=== PATIENT | female | born 1980 | race Asian ===

== ENCOUNTER 2018-01-21 09:39 | Inpatient (IN) | payer OTHER ==
[~2018-01-21] VITALS: Ht 177.8 cm; Wt 139.9 kg
[2018-01-21 09:50] VITALS: BP 129/71
--- NOTE | 2018-01-21 10:05 | NUR ---
C/O EPIGASTRIC PAIN RADIATING TO THE LOWER BACK X 4 DAYS WITH VOMITING ONLY ON FRIDAY. ALSO STATES SHE HAS HEMATURIA. DENIES N/V/D AT THIS TIME; SKIN IS PINK/WARM/DRY; AAOX4 WITH EVEN AND STEADY GAIT; LUNGS CLEAR BL; HR EVEN AND REGULAR; PT DENIES ANY FEVER, CP, SOB, OR COUGH AT THIS TIME; PATIENT STATES PAIN OF 8/10 AT THIS TIME; VSS; PATIENT POSITIONED FOR COMFORT; HOB ELEVATED; BEDRAILS UP X2; BED DOWN. ER MD MADE AWARE OF PT STATUS.
--- NOTE | 2018-01-21 10:09 | NUR ---
DR CHAND AT BEDSIDE.
[2018-01-21] MEDS ORDERED: KETOROLAC 30 MG/ML VIAL IVP ONE (10:15)
[2018-01-21] MEDS ORDERED: KETOROLAC 60 MG/2 ML VIAL IM ONE (10:35)
[2018-01-21 10:52] LABS: BASOPHILS % (AUTO) 0.2 % (0.0-2.0); EOSINOPHILS # (AUTO) 0.3 K/uL (0-0.4); HEMATOCRIT 42.7 % (36-48); HEMOGLOBIN 13.8 g/dL (12.0-16.0); LYMPHOCYTES # (AUTO) 1.8 K/uL (2.5-16.5); LYMPHOCYTES % (AUTO) 13.6 % (20.5-51.1); MEAN CORPUSCULAR HEMOGLOBIN 29 pg (27-31); MEAN CORPUSCULAR HGB CONC 32 g/dL (33-37); MEAN CORPUSCULAR VOLUME 88.8 fL (80-94); MONOCYTES % (AUTO) 7.4 % (1.7-9.3); NEUTROPHILS # (AUTO) 10.2 K/uL (1.8-7.7); NEUTROPHILS % (AUTO) 76.8 % (42.2-75.2); PLATELET COUNT (AUTO) 305 K/uL (140-450); WHITE BLOOD COUNT (AUTO) 13.3 K/uL (4.8-10.8)
[2018-01-21 10:55] LABS: APPEARANCE,URINE HAZY (CLEAR); BILIRUBIN,URINE MODERATE (NEGATIVE); BLOOD, URINE LARGE (NEGATIVE); LEUKOCYTE ESTERASE ,URINE TRACE (NEGATIVE); NITRITE, URINE POSITIVE (NEGATIVE); PH,URINE 6.5 (5.0-9.0); UGLUCOSE NEGATIVE (NEGATIVE)
[2018-01-21 10:56] LABS: COLOR,URINE ORANGE (YELLOW)
[2018-01-21 11:08] LABS: RBC,URINE 11-20 (MOD) /HPF (0-5); WBC,URINE 0-5 (RARE) /HPF (0-5)
[2018-01-21 11:09] LABS: YEAST,URINE Few /HPF (None Seen)
[2018-01-21 11:10] LABS: CARBON DIOXIDE 26.4 mmol/L (21-32); CREATININE 0.8 mg/dL (0.6-1.3); POTASSIUM 3.4 mmol/L (3.5-5.1)
--- NOTE | 2018-01-21 11:11 | NUR ---
PATIENT STATES PAIN IMPROVED TO 4/10 AFTER TORADOL SHOT.
[2018-01-21 11:14] LABS: ALBUMIN 3.1 g/dL (3.4-5.0); TOTAL BILIRUBIN 0.9 mg/dL (0.0-1.0)
[2018-01-21] MEDS ORDERED: PIPERACILLIN/TAZOBACTAM 3.375 GM in DEXTROSE 5% 50 ML IV ONE (12:45)
--- NOTE | 2018-01-21 13:00 | NUR ---
NO STATED NEEDS AT THIS TIME.
[2018-01-21] MEDS ORDERED: PIPERACILLIN/TAZOBACTAM 3.375 GM VIAL IV ONE (13:07)
[2018-01-21] MEDS ORDERED: NACL 0.9% 1,000 ML IV SCH (13:13)
[2018-01-21] MEDS ORDERED: ACETAMINOPHEN 325 MG TAB PO PRN (13:15)
[2018-01-21] MEDS ORDERED: MORPHINE SULFATE 2 MG/ML SYR IVP PRN (13:15)
[2018-01-21] MEDS ORDERED: MORPHINE SULFATE 4 MG/ML SYR IVP PRN (13:15)
[2018-01-21] MEDS ORDERED: ONDANSETRON 4 MG/2 ML VIAL IVP PRN (13:15)
[2018-01-21 13:24] LABS: PROTHROMBIN TIME 9.6 secs (10.8-13.4)
--- NOTE | 2018-01-21 14:09 | NUR ---
Patient will be admitted to care of DR. CONNELL. Admited to [facility]. ADMITTED to room 111-B. Belongings list completed. Report to BARTOLO COLBY.
--- NOTE | 2018-01-21 14:28 | NUR ---
REVEIVED RE[PORT FROM ER NURSE AT BEDSIDE. PT ADMITTED WITH DX OF ACUTE CHOLECYSTITIS, CC OF ABD PAIN.. PT SITTING ON HER BED AT THIS TIME, AOX4, SKIN IS INTACT. PT DENIES ANY PAIN AT THIS TIME. MRSA SWAB COLLECTED. PT ON NPO. EDUCATED HER ON NPO STATUS. ASKING WHEN SHE WILL KNOW ABOUT SX, INFORMED HER THAT PT WILL BE SEEN BY MD AND THEN WILL DECIDE FROM THE ASSESSMENT DONE. PLACE CALL LIGHT WITHIN PT REACH. INFORMED HER TO USE CALL LIGHT FOR ANY HELP. VERBALISED UNDERSTANDING. WILL CONTINUE TO MONITOR PT.
[2018-01-21 16:00] VITALS: BP 106/61
--- NOTE | 2018-01-21 16:51 | NUR ---
CHECKED ON PT. LYING ON HER BED AND TALKING WITH . VS WITHIN NORMAL RANGE. NO SIGN OF DISTRESS NOTED. PT DENIES ANY PAIN. INFORMED PT TO USE CALL LIGHT FOR ANY HELP. VERBALIZED UNDERSTANDING. WILL CONTINUE TO MONITOR PT.
--- NOTE | 2018-01-21 17:53 | NUR ---
DR BOSE CALLED REGARDING PT UPDATE. ASKING ABOUT WBC , INFORMED HIM THAT PT HAS 13.3 WBC AT THIS TIME. CHECKED ON PT. NO SIGN OF DISTRESS NOTED. WILL CONTINUE TO MONITOR PT.
--- NOTE | 2018-01-21 19:10 | NUR ---
ENDORSED PT TO PM NURSE AT BEDSIDE. PT LTING ON HER BED. NPO. AT BEDSIDE. SCD AT BEDSIDE. PT REFUSED TO PUT IT ON. PT STABLE.
--- NOTE | 2018-01-21 19:11 | NUR ---
RECEIVED REPORT FROM DAY SHIFT RN SITAL FOR CONTINUITY OF CARE. PT IS A/OX4, ON ROOM AIR. PT AMBULATES WITH STEADY GAIT, AND SKIN IS PINK/WARM/DRY AND INTACT. PT IS ABLE TO MAKE NEEDS KNOWN, AND ABLE TO FOLLOW COMMANDS. LUNGS SOUNDS CLEAR, HR EVEN AND REGULAR. PT HAS 22G IV TO LEFT HAND, ASYMPTOMATIC AND INTACT. PT DENIES ANY PAIN AT THIS TIME. VITAL SIGNS STABLE. NO SIGNS OF DISTRESS NOTED. PT POSITIONED FOR COMFORT. BED RAILS UP X2, BED IN LOWEST POSITION. CALL LIGHT WITHIN REACH. WILL CONTINUE TO MONITOR.
--- NOTE | 2018-01-21 21:05 | NUR ---
PT WANTS TO KNOW IF DR BOSE WILL COME TONIGHT BECAUSE SHE IS VERY HUNGRY. DR BOSE WAS PAGED.
--- NOTE | 2018-01-21 23:22 | NUR ---
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 SHE STATES SHE WILL COME BACK ON FRIDAY WHEN THEY DON'T HAVE TO GO TO WORK AND SOMEONE CAN SIT FOR HER CHILDREN. CALLED DR AYALA AND MADE HIM AWARE THAT PT IS LEAVING AMA. HE SAID, "OK." PT SIGNED AMA FORM, I REMOVED IV (CATHETER INTACT), PT GOT DRESSED AND AMBULATED WITH HER OUT OF UNIT.
== END 2018-01-21 23:22 | disposition left against medical advice (07) ==
LOC: MED 09:39 → MTU 13:15
PROVIDERS: ADMIT Hospitalist; ATTEND Hospitalist
DX: K81.0 Acute cholecystitis (principal); R65.11 Systemic inflammatory response syndrome (SIRS) of non-infectious origin with acute organ dysfunction; F17.210 Nicotine dependence, cigarettes, uncomplicated; K21.9 Gastro-esophageal reflux disease without esophagitis; Z53.21 Procedure and treatment not carried out due to patient leaving prior to being seen by health care provider; Z87.442 Personal history of urinary calculi
CPT/HCPCS: 36415; 76705; 80053; 81001; 83605; 83690; 85025; 85610; 85730; 87040; 87081; 87086; 87186; 96365; 96372; 99285; J1885; J2543; J7030; Q0092